=== PATIENT | male | born 1990 | race Caucasian/White ===

== ENCOUNTER 2021-06-11 06:32 | Emergency (ER) | payer BC ==
[~2021-06-11] VITALS: Ht 188 cm; Wt 86.4 kg
[2021-06-11] MEDS ORDERED: albuterol 2.5 MG/3 ML nebule NEB ONE ×2 (06:40→07:50)
[2021-06-11] MEDS ORDERED: methylPREDNISolone sod succ 125mg/2ml vial IV ONE (06:40)
[2021-06-11] MEDS ORDERED: racepinephrine 11.25mg/0.5ml nebule IH ONE (06:40)
[2021-06-11] MEDS ORDERED: PRED20TA PO (08:30)
[2021-06-11] MEDS ORDERED: ALBU18HF2 INH (08:30)
[2021-06-11 08:41] VITALS: BP 127/106
== END 2021-06-11 08:43 | disposition home or self-care (01) ==
LOC: ER 06:36
DX: T78.40XA Allergy, unspecified, initial encounter (principal)
CPT/HCPCS: 94640; 96374; 99285; J2930; 94760